=== PATIENT | male | born 1965 | race Caucasian/White ===

== ENCOUNTER 2017-04-12 16:28 | Inpatient (IN) | payer OTHER ==
[~2017-04-12] VITALS: Ht 175.3 cm; Wt 106.0 kg
[~2017-04-12 16:28] MED LIST: ASPIR 8181 MG PO; FLO4 PO; GLYBURIDE5 MG PO; INVOKANA100 MG PO; METFORMIN HCL850 MG PO; OMEPRAZOLE DR20 M1 PO; PRINIVIL10 MG PO; PROZAC40 MG PO; TENORMIN100 MG PO; WELLBUTRIN SR150 MG PO
[2017-04-12 16:40] VITALS: Ht 175.3 cm; Wt 106.0 kg
[2017-04-12 17:51] LABS: PLATELET COUNT 329 x10^3mcL (130-400); RED CELL DISTRIBUTION WIDTH 13.1 % (11.5-14.5)
[2017-04-12 18:01] LABS: BASOPHIL % 3.2 % (0-2)
[2017-04-12 18:02] LABS: CARBON DIOXIDE 23.5 mmol/L (21-32); CHLORIDE SERUM 97 mmol/L (98-107); CREATININE SERUM 0.7 mg/dL (0.7-1.3); GFR1 > 60 mL/min; GLUCOSE SERUM 375 mg/dL (74-106); SODIUM SERUM 136 mmol/L (136-145)
[2017-04-12 18:11] LABS: ALKALINE PHOSPHATASE 88 U/L (46-116); ALT/SGPT 22 U/L (16-63); AST/SGOT 9 U/L (15-37); BILIRUBIN TOTAL 0.36 mg/dL (0.20-1.00); TOTAL PROTEIN, SERUM 7.4 g/dL (6.4-8.2)
[2017-04-12 18:12] LABS: ALBUMIN 2.9 g/dL (3.4-5.0)
[2017-04-12 18:55] LABS: OSMOLALITY SERUM 304 mOsm/kg (278-298)
[2017-04-12 21:03] LABS: microscopic required? NO
[2017-04-12 21:10] LABS: urine erythrocyte NEGATIVE (NEGATIVE)
[2017-04-12 21:42] LABS: MAGNESIUM 2.1 mg/dL (1.8-2.4); PHOSPHOROUS 3.9 mg/dL (2.5-4.9)
[2017-04-12 21:43] LABS: AMPHETAMINE QUAL UR NONE DETECTED (NEG <=1000)
[2017-04-12 21:43] LABS: CHOLESTEROL/HDL RATIO 2.5
[2017-04-12 23:53] VITALS: BP 130/68
[2017-04-13 00:40] VITALS: BP 130/68
[2017-04-13 01:43] LABS: CALCIUM 8.3 mg/dL (8.5-10.1); CARBON DIOXIDE 24.1 mmol/L (21-32); CHLORIDE SERUM 104 mmol/L (98-107); CREATININE SERUM 0.6 mg/dL (0.7-1.3); GFR1 > 60 mL/min; GLUCOSE SERUM 250 mg/dL (74-106); MAGNESIUM 1.9 mg/dL (1.8-2.4); POTASSIUM SERUM 3.5 mmol/L (3.5-5.1); SODIUM SERUM 141 mmol/L (136-145)
[2017-04-13 01:55] LABS: FREE T4 0.82 ng/dL (0.76-1.46); FREE THYROXINE INDEX 1.9 ug/dL (1.4-4.5); T4(THYROXINE) 4.8 ug/dL (4.7-13.3)
[2017-04-13 02:16] LABS: T3 TOTAL 0.67 ng/mL
[2017-04-13 04:10] VITALS: BP 138/71
[2017-04-13 05:00] LABS: CALCIUM 8.2 mg/dL (8.5-10.1); CARBON DIOXIDE 26.8 mmol/L (21-32); CHLORIDE SERUM 105 mmol/L (98-107); CREATININE SERUM 0.6 mg/dL (0.7-1.3); GFR1 > 60 mL/min; GLUCOSE SERUM 171 mg/dL (74-106); POTASSIUM SERUM 3.4 mmol/L (3.5-5.1); SODIUM SERUM 140 mmol/L (136-145)
[2017-04-13 08:06] LABS: PLATELET COUNT 296 x10^3mcL (130-400); RED CELL DISTRIBUTION WIDTH 14.2 % (11.5-14.5)
[2017-04-13 08:23] VITALS: BP 139/84
[2017-04-13 08:26] LABS: CALCIUM 8.5 mg/dL (8.5-10.1); CARBON DIOXIDE 29.4 mmol/L (21-32); CHLORIDE SERUM 104 mmol/L (98-107); CREATININE SERUM 0.6 mg/dL (0.7-1.3); GFR1 > 60 mL/min; GLUCOSE SERUM 138 mg/dL (74-106); POTASSIUM SERUM 4.1 mmol/L (3.5-5.1); SODIUM SERUM 140 mmol/L (136-145)
[2017-04-13 11:33] VITALS: BP 132/85
[2017-04-13 16:40] VITALS: BP 125/74
[2017-04-13 20:32] VITALS: BP 126/75
[2017-04-14 04:34] VITALS: BP 123/74
[2017-04-14 06:26] LABS: BASOPHIL % 0.4 % (0-2); PLATELET COUNT 291 x10^3mcL (130-400); RED CELL DISTRIBUTION WIDTH 14.3 % (11.5-14.5)
[2017-04-14 06:45] LABS: CALCIUM 8.2 mg/dL (8.5-10.1); CARBON DIOXIDE 28.6 mmol/L (21-32); CHLORIDE SERUM 104 mmol/L (98-107); CREATININE SERUM 0.6 mg/dL (0.7-1.3); GFR1 > 60 mL/min; GLUCOSE SERUM 197 mg/dL (74-106); PHOSPHOROUS 3.5 mg/dL (2.5-4.9); POTASSIUM SERUM 3.9 mmol/L (3.5-5.1); SODIUM SERUM 141 mmol/L (136-145)
[2017-04-14 10:32] VITALS: BP 105/67
[2017-04-14] MEDS ORDERED: GLYBURIDE5 MG PO (10:39)
[2017-04-14] MEDS ORDERED: AFRIN PUMPMIST15 ML NS (10:40)
[2017-04-14] MEDS ORDERED: LEVOFLOXACIN500 M1 PO (10:41)
[2017-04-14] MEDS ORDERED: ACIDOPHILUS LA1 EACH PO (10:41)
[2017-04-14 10:52] VITALS: BP 105/67
[2017-04-14 13:04] VITALS: BP 121/82
== END 2017-04-14 14:43 | disposition home or self-care (01) | DRG 637 ==
LOC: ED 16:28 → DU 20:27 → IC 21:49 → DU 04-13 11:26
PROVIDERS: Emergency Medicine; Family Medicine
DX: E11.10 Type 2 diabetes mellitus with ketoacidosis without coma (principal); N17.0 Acute kidney failure with tubular necrosis; D68.69 Other thrombophilia; E44.0 Moderate protein-calorie malnutrition; N40.0 Benign prostatic hyperplasia without lower urinary tract symptoms; F32.9 Major depressive disorder, single episode, unspecified; I10 Essential (primary) hypertension; F17.210 Nicotine dependence, cigarettes, uncomplicated; J01.90 Acute sinusitis, unspecified; E66.9 Obesity, unspecified; D64.9 Anemia, unspecified; E78.5 Hyperlipidemia, unspecified; Z79.82 Long term (current) use of aspirin; Z68.34 Body mass index [BMI] 34.0-34.9, adult; Z79.84 Long term (current) use of oral hypoglycemic drugs; Z83.3 Family history of diabetes mellitus; Z91.14 Patient's other noncompliance with medication regimen
CPT/HCPCS: 36600; 83880; 84439; 87804; J1956; J2270; J3490; J7030; J7620; Q0092

== ENCOUNTER → 2017-09-26 | Outpatient (CLI) | payer OTHER ==
[~2017-09-26] MED LIST changes: +ACIDOPHILUS LA1 EACH PO; +AFRIN PUMPMIST15 ML NS; +LEVOFLOXACIN500 M1 PO
[2017-09-26 09:07] LABS: BASOPHIL % 0.2 % (0-2); PLATELET COUNT 279 x10^3mcL (130-400)
[2017-09-26 09:08] LABS: RED CELL DISTRIBUTION WIDTH 14.9 % (11.5-14.5)
[2017-09-26 09:18] LABS: ALBUMIN 3.7 g/dL (3.4-5.0); ALKALINE PHOSPHATASE 88 U/L (46-116); ALT/SGPT 25 U/L (16-63); AST/SGOT 9 U/L (15-37); BILIRUBIN TOTAL 0.6 mg/dL (0.20-1.00); CALCIUM 8.4 mg/dL (8.5-10.1); CARBON DIOXIDE 31.4 mmol/L (21-32); CHLORIDE SERUM 103 mmol/L (98-107); CREATININE SERUM 0.8 mg/dL (0.7-1.3); GFR1 > 60 mL/min; GLUCOSE SERUM 221 mg/dL (74-106); HDL CHOLESTEROL 49 mg/dL (40-60); POTASSIUM SERUM 4.8 mmol/L (3.5-5.1); SODIUM SERUM 140 mmol/L (136-145); TOTAL PROTEIN, SERUM 7.5 g/dL (6.4-8.2); TRIGLYCERIDES 162 mg/dL (<150)
[2017-09-26 09:26] LABS: FREE T4 0.78 ng/dL (0.76-1.46); FREE THYROXINE INDEX 1.6 ug/dL (1.4-4.5); T4(THYROXINE) 4.7 ug/dL (4.7-13.3)
[2017-09-26 09:29] LABS: CHOLESTEROL 91 mg/dL (<200); CHOLESTEROL/HDL RATIO 1.9
[2017-09-26 09:56] LABS: T3 TOTAL 1.05 ng/mL
== END | disposition home or self-care (01) ==
LOC: MI 07:22
PROVIDERS: Family Medicine
PROC: BR39ZZZ Magnetic Resonance Imaging (MRI) of Lumbar Spine (ICD-10-PCS; principal; 2017-09-26)
PROC: BR37ZZZ Magnetic Resonance Imaging (MRI) of Thoracic Spine (ICD-10-PCS; 2017-09-26)
DX: Z00.00 Encounter for general adult medical examination without abnormal findings (principal); M54.5 Low back pain
CPT/HCPCS: 84439

== ENCOUNTER → 2018-10-05 | Outpatient (CLI) | payer OTHER ==
[2018-10-05 17:47] LABS: BASOPHIL % 0.6 % (0-2); PLATELET COUNT 299 x10^3mcL (130-400); RED CELL DISTRIBUTION WIDTH 13.4 % (11.5-14.5)
[2018-10-05 18:16] LABS: ALKALINE PHOSPHATASE 90 U/L (46-116); ALT/SGPT 27 U/L (16-63); AST/SGOT 7 U/L (15-37); BILIRUBIN TOTAL 0.41 mg/dL (0.20-1.00); CALCIUM 9.8 mg/dL (8.5-10.1); CARBON DIOXIDE 24.7 mmol/L (21-32); CHLORIDE SERUM 104 mmol/L (98-107); CREATININE SERUM 0.7 mg/dL (0.7-1.3); FREE T4 0.99 ng/dL (0.76-1.46); GFR1 > 60 mL/min; GLUCOSE SERUM 136 mg/dL (74-106); HDL CHOLESTEROL 50 mg/dL (40-60); POTASSIUM SERUM 4.2 mmol/L (3.5-5.1); SODIUM SERUM 140 mmol/L (136-145); TOTAL PROTEIN, SERUM 7.9 g/dL (6.4-8.2); TRIGLYCERIDES 86 mg/dL (<150)
[2018-10-05 18:43] LABS: CHOLESTEROL 84 mg/dL (<200); CHOLESTEROL/HDL RATIO 1.7
[2018-10-07 09:05] LABS: microalbumin:creatinine ratio 23.2 (0.0-30.0)
== END | disposition home or self-care (01) ==
LOC: LB 17:16
DX: E11.9 Type 2 diabetes mellitus without complications (principal); I10 Essential (primary) hypertension
CPT/HCPCS: 84439

== ENCOUNTER → 2019-02-05 | Outpatient (CLI) | payer OTHER ==
[2019-02-05 12:23] LABS: PLATELET COUNT 278 x10^3mcL (130-400); RED CELL DISTRIBUTION WIDTH 13.2 % (11.5-14.5)
[2019-02-05 12:54] LABS: ALBUMIN 3.8 g/dL (3.4-5.0); ALKALINE PHOSPHATASE 99 U/L (46-116); ALT/SGPT 32 U/L (16-63); AST/SGOT 13 U/L (15-37); BILIRUBIN TOTAL 0.5 mg/dL (0.20-1.00); CALCIUM 8.9 mg/dL (8.5-10.1); CARBON DIOXIDE 30.2 mmol/L (21-32); CHLORIDE SERUM 100 mmol/L (98-107); CREATININE SERUM 0.9 mg/dL (0.7-1.3); GFR1 > 60 mL/min; GLUCOSE SERUM 260 mg/dL (74-106); HDL CHOLESTEROL 46 mg/dL (40-60); POTASSIUM SERUM 4.7 mmol/L (3.5-5.1); SODIUM SERUM 138 mmol/L (136-145); TOTAL PROTEIN, SERUM 7.6 g/dL (6.4-8.2)
[2019-02-05 13:01] LABS: CHOLESTEROL 99 mg/dL (<200); CHOLESTEROL/HDL RATIO 2.2; TRIGLYCERIDES 203 mg/dL (<150)
[2019-02-06 10:05] LABS: microalbumin:creatinine ratio 42.9 (0.0-30.0)
== END | disposition home or self-care (01) ==
LOC: LB 11:54
DX: E11.65 Type 2 diabetes mellitus with hyperglycemia (principal); E78.5 Hyperlipidemia, unspecified; I10 Essential (primary) hypertension; E66.1 Drug-induced obesity